=== PATIENT | male | born 1960 | race Caucasian/White ===

== ENCOUNTER 2017-10-14 08:19 | Emergency (ER) | payer OTHER ==
[~2017-10-14] VITALS: Ht 182.9 cm; Wt 92.0 kg
[2017-10-14 08:22] VITALS: BP 200/90; PULSE 46; RESP 16; TEMP 98.4; O2SAT 99
[2017-10-14] MEDS ORDERED: ONDANSETRON HCL 4 MG/2 ML VIAL IV PUSH ONE (09:15)
[2017-10-14] MEDS ORDERED: SODIUM CHLORID 0.9% 500 ML INJ 500 ML IV ONE (09:15)
[2017-10-14] MEDS ORDERED: MORPHINE SULFATE 4 MG/ML INJ IV PUSH ONE ×2 (09:15→10:30)
[2017-10-14 09:42] LABS: AUTOMATED NEUTROPHIL # 9.4 TH/MM3 (1.8-7.7); BASOPHIL # 0.1 TH/MM3 (0-0.2); BASOPHIL % 0.6 % (0.0-2.0); EOSINOPHIL # 0.1 TH/MM3 (0-0.4); EOSINOPHIL % 1.3 % (0.0-4.0); HEMATOCRIT 49.5 % (39.0-51.0); HEMO FLAGS DIFF FINAL; LYMPH % 9.7 % (9.0-44.0); LYMPHOCYTE # 1.1 TH/MM3 (1.0-4.8); MEAN CELL VOLUME 91.9 FL (80.0-100.0); MEAN CORPUSCULAR HEMOGLOBIN 30.7 PG (27.0-34.0); MEAN CORPUSCULAR HGB CONC 33.3 % (32.0-36.0); MONO % 6.6 % (0.0-8.0); NEUT % 81.8 % (16.0-70.0); PLATELET COUNT 300 TH/MM3 (150-450); RED BLOOD COUNT 5.38 MIL/MM3 (4.50-5.90); WHITE BLOOD COUNT 11.4 TH/MM3 (4.0-11.0)
[2017-10-14 09:51] LABS: ALT (GPT) 28 U/L (12-78)
[2017-10-14 09:52] VITALS: BP 177/81; PULSE 45; RESP 18; O2SAT 96; O2SAT 98
[2017-10-14 09:54] LABS: ALKALINE PHOSPHATASE 108 U/L (45-117); TOTAL BILIRUBIN ADULT 0.4 MG/DL (0.2-1.0)
[2017-10-14 10:00] VITALS: BP 163/71; PULSE 52; RESP 23; O2SAT 98
--- NOTE | 2017-10-14 10:02 | PD ---
HPI Chief Complaint: Abdominal Pain Time Seen by Provider: 08:50 Travel History International Travel<30 days: No Contact w/Intl Traveler<30days: No Traveled to known affect area: No History of Present Illness HPI 57-year-old male states last night he developed right lower quadrant abdominal pain and nonbloody emesis. He denies any other concurrent complaints. Quality pain is sharp. Severity is severe. He denies recurrent history of this. He denies any specific modifying factors. PFSH Past Medical History Medical History: Denies Significant Hx Diminished Hearing: No Past Surgical History Abdominal Surgery: Yes (GASTRIC BYPASS) Cholecystectomy: Yes Social History Alcohol Use: No Tobacco Use: Yes (1 PPD) Substance Use: No Allergies-Medications (Allergen,Severity, Reaction): Coded Allergies: No Known Allergies (Unverified , 10/14/17) Reported Meds & Prescriptions Reported Meds & Active Scripts Active Flomax (Tamsulosin HCl) 0.4 Mg Cap 0.4 Mg PO HS can stop once stone passed Percocet (Oxycodone-Acetaminophen) 5-325 mg Tab 1 Tab PO Q6H PRN Review of Systems Except as stated in HPI: all other systems reviewed are Neg Physical Exam Narrative GENERAL: Well-nourished, well-developed patient. Uncomfortable SKIN: Warm and dry. HEAD: Normocephalic and atraumatic. EYES: No injection or drainage. ENT: No nasal drainage noted. NECK: Supple, trachea midline. CARDIOVASCULAR: Regular rate and rhythm RESPIRATORY: Breath sounds equal bilaterally. No accessory muscle use. GASTROINTESTINAL: Abdomen soft, tender right lower quadrant, nondistended. EXTREMITIES: No edema. NEUROLOGICAL: Awake and alert. Motor and sensory grossly within normal limits. Normal speech. Data Data Last Documented VS Vital Signs Date Time Temp Pulse Resp B/P (MAP) Pulse Ox O2 Delivery O2 Flow Rate FiO2 10/14/17 11:00 53 24 167/79 (108) 95 Room Air 10/14/17 08:22 98.4 Orders Orders Electrocardiogram (10/14/17 ) Complete Blood Count With Diff (10/14/17 08:53) Comprehensive Metabolic Panel (10/14/17 08:53) Urinalysis - C+S If Indicated (10/14/17 08:53) Lipase (10/14/17 08:53) Ct Abd/Pel W Iv Contrast(Rout) (10/14/17 ) Iv Access Insert/Monitor (10/14/17 08:53) Oximetry (10/14/17 08:53) Morphine Inj (Morphine Inj) (10/14/17 09:15) Ondansetron Inj (Zofran Inj) (10/14/17 09:15) Sodium Chlorid 0.9% 500 Ml Inj (Ns 500 M (10/14/17 09:15) Morphine Inj (Morphine Inj) (10/14/17 10:30) Ed Discharge Order (10/14/17 12:47) Labs Laboratory Tests Test 10/14/17 09:15 10/14/17 12:00 White Blood Count 11.4 TH/MM3 Red Blood Count 5.38 MIL/MM3 Hemoglobin 16.5 GM/DL Hematocrit 49.5 % Mean Corpuscular Volume 91.9 FL Mean Corpuscular Hemoglobin 30.7 PG Mean Corpuscular Hemoglobin Concent 33.3 % Red Cell Distribution Width 15.0 % Platelet Count 300 TH/MM3 Mean Platelet Volume 7.5 FL Neutrophils (%) (Auto) 81.8 % Lymphocytes (%) (Auto) 9.7 % Monocytes (%) (Auto) 6.6 % Eosinophils (%) (Auto) 1.3 % Basophils (%) (Auto) 0.6 % Neutrophils # (Auto) 9.4 TH/MM3 Lymphocytes # (Auto) 1.1 TH/MM3 Monocytes # (Auto) 0.8 TH/MM3 Eosinophils # (Auto) 0.1 TH/MM3 Basophils # (Auto) 0.1 TH/MM3 CBC Comment DIFF FINAL Differential Comment Blood Urea Nitrogen 19 MG/DL Creatinine 0.99 MG/DL Random Glucose 121 MG/DL Total Protein 8.3 GM/DL Albumin 4.3 GM/DL Calcium Level 9.6 MG/DL Alkaline Phosphatase 108 U/L Aspartate Amino Transf (AST/SGOT) 22 U/L Alanine Aminotransferase (ALT/SGPT) 28 U/L Total Bilirubin 0.4 MG/DL Sodium Level 139 MEQ/L Potassium Level 5.4 MEQ/L Chloride Level 107 MEQ/L Carbon Dioxide Level 26.6 MEQ/L Anion Gap 5 MEQ/L Estimat Glomerular Filtration Rate 78 ML/MIN Lipase 147 U/L Urine Color YELLOW Urine Turbidity CLEAR Urine pH 5.5 Urine Specific Boon GREATER THAN 1.050 Urine Protein 30 mg/dL Urine Glucose (UA) NEG mg/dL Urine Ketones 10 mg/dL Urine Occult Blood NEG Urine Nitrite NEG Urine Bilirubin NEG Urine Urobilinogen 2.0 MG/DL Urine Leukocyte Esterase NEG Urine RBC 1 /hpf Urine WBC LESS THAN 1 /hpf Urine Mucus FEW /lpf Microscopic Urinalysis Comment CULT NOT INDICATED MDM Medical Decision Making Medical Screen Exam Complete: Yes Emergency Medical Condition: Yes Medical Record Reviewed: Yes (past history confirmed with nurse) Interpretation(s) EKG is sinus bradycardia at 55, right bundle branch block, no STEMI criteria CBC & BMP Diagram 10/14/17 09:15 Total Protein 8.3 H, Albumin 4.3, Calcium Level 9.6, Alkaline Phosphatase 108, Aspartate Amino Transf (AST/SGOT) 22, Alanine Aminotransferase (ALT/SGPT) 28, Total Bilirubin 0.4 Last 24 hours Impressions Abdomen/Pelvis CT 10/14/17 0000 Signed Impressions: Service Date/Time: Saturday, October 14, 2017 11:04 - CONCLUSION: 1. I believe patient's symptoms are due to a punctate, 1-2 mm calculus identified just distal to the right UVJ with resulting mild hydroureter and pelvocaliectasis of the right renal collecting system. 2. Postsurgical changes including a prior gastric bypass and cholecystectomy. Mild intra-and extrahepatic biliary ductal dilatation is likely related to the latter. Graham Quintanilla MD Differential Diagnosis Appendicitis, stone, pancreatitis, UTI Narrative Course Will check blood work, urinalysis, CT scan abdominal pelvis and dose with morphine and Zofran and reevaluate ed workup with right ureteral calculus, Patient denies any new complaints and states that they are feeling better. no emesis here, Patient happy with care, all questions answered. Patient knows that follow up is incumbent on them and to return to the emergency room immediately if new or worsening symptoms develop. Patient given strict return precautions, vitals reviewed and are normal , agrees to further workup as an outpatient. Diagnosis Primary Impression: Right ureteral calculus Referrals: Urologist call for appointment Patient Instructions: General Instructions, Narcotic given in the ED Additional Instructions: return as needed, follow with urology, don't drive while taking pain medication , keep hydrated, strain urine Med/Other Pt SpecificInfo: Prescription(s) given Scripts Tamsulosin (Flomax) 0.4 Mg Cap 0.4 MG PO HS for Manage Prostate Problems, #14 CAP 0 Refills can stop once stone passed Prov: Monalisa Cosme MD 10/14/17 Oxycodone-Acetaminophen (Percocet) 5-325 mg Tab 1 TAB PO Q6H Y for PAIN, #15 TAB 0 Refills Prov: Monalisa Cosme MD 10/14/17 Disposition: 01 DISCHARGE HOME Condition: Stable Monalisa Cosme MD Oct 14, 2017 10:02
[2017-10-14 10:17] LABS: ANION GAP 5 MEQ/L (5-15); AST (GOT) 22 U/L (15-37); BICARBONATE 26.6 MEQ/L (21.0-32.0); BLOOD UREA NITROGEN 19 MG/DL (7-18); CHLORIDE 107 MEQ/L (98-107); GLOMERULAR FILTRATION RATE 78 ML/MIN (>89); POTASSIUM 5.4 MEQ/L (3.5-5.1); SODIUM (NA) 139 MEQ/L (136-145)
[2017-10-14 11:00] VITALS: BP 167/79; PULSE 53; RESP 24; O2SAT 95
[2017-10-14] MEDS ORDERED: IOHEXOL 350 MG/ML 10 ML VIAL (for RAD DIAG) IVCONTRAST ONE (11:04)
--- NOTE | 2017-10-14 11:38 | RADRPT ---
EXAM DATE/TIME: 10/14/2017 11:04 [facility] COMPARISON: No previous studies available for comparison. INDICATIONS : Right lower quadrant pain. IV CONTRAST: 71 cc Omnipaque 350 (iohexol) IV ORAL CONTRAST: No oral contrast ingested. RADIATION DOSE: 7.77 CTDIvol (mGy) MEDICAL HISTORY : None SURGICAL HISTORY : Gastric bypass. Cholecystectomy. ENCOUNTER: Initial ACUITY: 1 day PAIN SCALE: 7/10 LOCATION: Right lower quadrant TECHNIQUE: Volumetric scanning of the abdomen and pelvis was performed. Using automated exposure control and ad justment of the mA and/or kV according to patient size, radiation dose was kept as low as reasonably achievable to obtain optimal diagnostic quality images. DICOM format image data is available electro nically for review and comparison. FINDINGS: LOWER LUNGS: Symmetric dependent atelectatic changes with a small parenchymal cyst in the right base. Otherwise cl ear. LIVER: Homogeneous density without lesion. Mild intra-and extra hepatic biliary ductal dilatation is probabl y secondary to a capacitance effect associated with prior cholecystectomy. SPLEEN: Normal size without lesion. PANCREAS: Within normal limits. KIDNEYS: Minimal pelvocaliectasis and mild hydroureter on the right. I believe this is deep to a 1-2 mm stone which appears to just posterior to the right UVJ. Left kidney and collecting system are radiographica lly normal. ADRENAL GLANDS: Within normal limits. VASCULAR: There is no aortic aneurysm. BOWEL/MESENTERY: Postsurgical changes in the left upper abdominal quadrant characteristic of the reported history of g astric bypass. Vermiform appendix is identified and is diminutive. ABDOMINAL WALL: Within normal limits. RETROPERITONEUM: There is no lymphadenopathy. BLADDER: No wall thickening or mass. REPRODUCTIVE: Mild dystrophic-type calcification. INGUINAL: There is no lymphadenopathy or hernia. MUSCULOSKELETAL: Within normal limits for patient age. CONCLUSION: 1. I believe patient's symptoms are due to a punctate, 1-2 mm calculus identified just distal to the right UVJ with resulting mild hydroureter and pelvocaliectasis of the right renal collecting system. 2. Postsurgical changes including a prior gastric bypass and cholecystectomy. Mild intra-and extrahep atic biliary ductal dilatation is likely related to the latter. Graham Quintanilla MD on October 14, 2017 at 11:27 Board Certified Radiologist. This report was verified electronically.
[2017-10-14] MEDS ORDERED: PERC5TAB12 PO (12:04)
[2017-10-14] MEDS ORDERED: TAMS5CAP PO (12:04)
[2017-10-14 12:41] LABS: BLOOD, URINE NEG (NEG); COMMENT (UR) CULT NOT INDICATED; CULTURE IF INDICATED CULT NOT INDICATED; GLUCOSE,URINE NEG (NEG); KETONE, URINE 10 mg/dL (NEG); MUCUS URINE FEW /lpf (OCC); NITRITE,URINE NEG (NEG); PH, URINE 5.5 (5.0-8.5); URINE COLOR YELLOW (YELLW/STRAW)
--- NOTE | 2017-10-15 10:30 | EKG ---
Date Performed: 10/14/2017 Time Performed: 09:46:53 PTAGE: 57 years EKG: SINUS BRADYCARDIA RIGHT BUNDLE BRANCH BLOCK ABNORMAL ECG NO PREVIOUS TRACING DOCTOR: Jerome Root Interpretating Date/Time 10/15/2017 10:29:09
== END 2017-10-14 13:45 | disposition home or self-care (01) ==
LOC: NEPC 08:19
DX: N13.2 Hydronephrosis with renal and ureteral calculous obstruction (principal); F17.200 Nicotine dependence, unspecified, uncomplicated; R00.1 Bradycardia, unspecified
CPT/HCPCS: 74177; 80053; 81001; 83690; 85025; 93005; 96361; 96374; 96375; 96376; 99285; J2270; J2405; J7040; Q9967

== ENCOUNTER 2018-09-07 17:53 | Inpatient (IN) ==
[2018-09-07] MEDS ORDERED: Tetanus/Diphtheria Toxoid Adult Vaccine Inj 0.5 ML Vial IM ONE (18:06)
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
[2018-09-07] MEDS ORDERED: Sod Chloride 0.9% Inj 1,000 ML IV.SIG SCH (20:45)
[2018-09-07 20:52] LABS: Baso # (Auto) 0.1 th/mm3 (0.0-0.2); Baso % (Auto) 0.5 % (0.0-2.0); Eos # (Auto) 0.1 th/mm3 (0.0-0.4); Eos % (Auto) 0.8 % (0.0-4.0); Hematocrit 41.1 % (39.0-51.0); Hemoglobin 13.9 gm/dL (13.0-17.0); Lymph # (Auto) 0.8 th/mm3 (1.0-4.8); Lymph % (Auto) 6.9 % (9.0-44.0); Mean Corpuscular HGB Conc 33.9 % (32.0-36.0); Mean Corpuscular Hemoglobin 30.9 pg (27.0-34.0); Mean Corpuscular Volume 91.3 fL (80.0-100.0); Mono # (Auto) 0.9 th/mm3 (0.0-0.9); Mono % (Auto) 7.4 % (0.0-8.0); Neut # (Auto) 10.1 th/mm3 (1.8-7.7); Neut % (Auto) 84.4 % (16.0-70.0); Platelet Count 236 th/mm3 (150-450); Red Cell Distribution Width 15.2 % (11.6-17.2); White Blood Count 11.9 th/mm3 (4.0-11.0)
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
[2018-09-07 21:18] LABS: Albumin 3.7 g/dL (3.4-5.0); Anion Gap 7 meq/L (5-15); Aspartate Aminotransferase 37 U/L (15-37); Blood Urea Nitrogen 24 mg/dL (7-18); Carbon Dioxide 24.7 meq/L (21.0-32.0); Chloride 111 meq/L (98-107); Glomerular Filtration Rate Greater Than 89 mL/min (>89); Glucose,Random 112 mg/dL (74-106); Potassium 4.2 meq/L (3.5-5.1); Sodium 143 meq/L (136-145)
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
[2018-09-07 21:19] LABS: Alanine Aminotransferase 36 U/L (12-78)
[2018-09-07 21:21] LABS: Alkaline Phosphatase 83 U/L (45-117); Total Protein 6.9 g/dL (6.4-8.2)
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
[2018-09-07] MEDS ORDERED: HYDROmorphone PF Inj 2 MG/ML Vial IV.PUSH PRN (21:41)
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
[2018-09-07] MEDS: Methocarbamol 500 MG Tablet PO SCH (23:44)
[2018-09-08] MEDS: HYDROmorphone PF Inj 2 MG/ML Vial IV.PUSH PRN (00:09)
[2018-09-08] MEDS ORDERED: Chlorhexidine Gluconate 2% 1 Pack (2 Cloths) TOPICAL PRN (04:00)
--- NOTE | 2018-09-08 04:50 | CT ---
EXAM DATE: 09/08/2018 4:44 AM EDT AGE/SEX: 58 years / Male INDICATIONS: Follow up hemorrhage. CLINICAL DATA: This is the patient's sequela encounter. Patient reports that signs and symptoms have been present for 1 day and indicates a pain score of 4/10. MEDICAL/SURGICAL HISTORY: Renal calculi. Gastric bypass. RADIATION DOSE: 68.84 CTDI (mGy) ;Tabletop exam [place] [facility] [place]07/2018. . TECHNIQUE: CT of the head without contrast. Using automated exposure control and adjustment of the mA and/or kV according to patient size, radiation dose was kept as low as reasonably achievable to ob tain optimal diagnostic quality images. DICOM format image data is available electronically for revi ew and comparison. FINDINGS: Cerebrum: The ventricles are normal for age. No evidence of midline shift, mass lesion, hemorrhage or acute infarction. No extraaxial fluid collections are seen. Posterior Fossa: The cerebellum and brainstem are intact. The 4th ventricle is midline. The cerebe llopontine angle is unremarkable. Extracranial: The visualized portion of the orbits is intact. Skull: The calvaria is intact. No evidence of skull fracture. CONCLUSION: Within normal limits. No perceptible hemorrhage. . Electronically signed by: Margarito Skelton MD 09/08/2018 4:48 AM EDT
--- NOTE | 2018-09-08 05:07 | CT ---
EXAM DATE: 09/08/2018 4:49 AM EDT AGE/SEX: 58 years / Male INDICATIONS: Evaluate for fracture. Abnormal wrist xray. CLINICAL DATA: This is the patient's initial encounter. Patient reports that signs and symptoms have been present for 1 day and indicates a pain score of 7/10. MEDICAL/SURGICAL HISTORY: Renal calculi. Gastric bypass. RADIATION DOSE: 12.07 CTDI (mGy) COMPARISON: [facility], WRIST COMPLETE LEFT MIN 3V, 09/07/2018. . TECHNIQUE: Multiple contiguous axial images were acquired using a multirow detector CT scanner witho ut contrast. Multiplanar reconstruction was performed in the sagittal and coronal planes. Using aut omated exposure control and adjustment of the mA and/or kV according to patient size, radiation dose was kept as low as reasonably achievable to obtain optimal diagnostic quality images. DICOM format i mage data is available electronically for review and comparison. FINDINGS: A hairline oblique fracture involves the mid zone of the scaphoid. No foreshortening or other signifi cant displacement demonstrated. Other bones of the right wrist are intact. No fracture seen of the mchugh nd. CONCLUSION: 1. Nondisplaced acute, oblique hairline fracture of the scaphoid. Electronically signed by: Margarito Skelton MD 09/08/2018 5:06 AM EDT
[2018-09-08] MEDS: Chlorhexidine Gluconate 2% 1 Pack (2 Cloths) TOPICAL SCH (05:48)
[2018-09-08] MEDS: Methocarbamol 500 MG Tablet PO SCH ×3 (05:48→21:16)
[2018-09-08 06:30] LABS: Baso % (Auto) 0.4 % (0.0-2.0); Eos # (Auto) 0.1 th/mm3 (0.0-0.4); Eos % (Auto) 0.7 % (0.0-4.0); Hematocrit 41.3 % (39.0-51.0); Hemoglobin 14.1 gm/dL (13.0-17.0); Lymph % (Auto) 12.1 % (9.0-44.0); Mean Corpuscular HGB Conc 34.2 % (32.0-36.0); Mean Corpuscular Hemoglobin 31.7 pg (27.0-34.0); Mean Corpuscular Volume 92.7 fL (80.0-100.0); Mono % (Auto) 12.2 % (0.0-8.0); Neut # (Auto) 6.3 th/mm3 (1.8-7.7); Neut % (Auto) 74.6 % (16.0-70.0); Platelet Count 226 th/mm3 (150-450); Red Blood Count 4.45 mil/mm3 (4.50-5.90); Red Cell Distribution Width 15.5 % (11.6-17.2); White Blood Count 8.4 th/mm3 (4.0-11.0)
[2018-09-08 06:56] LABS: Anion Gap 7 meq/L (5-15); Blood Urea Nitrogen 17 mg/dL (7-18); Calcium 8.4 mg/dL (8.5-10.1); Carbon Dioxide 23.8 meq/L (21.0-32.0); Chloride 110 meq/L (98-107); Glomerular Filtration Rate Greater Than 89 mL/min (>89); Glucose,Random 110 mg/dL (74-106); Sodium 141 meq/L (136-145)
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
[2018-09-08] MEDS ORDERED: Docusate Sodium 100 MG Capsule PO SCH (09:00)
[2018-09-08] MEDS: Famotidine 20 MG Tablet PO SCH ×2 (09:38→21:16)
[2018-09-08] MEDS: Lidocaine 5% Patch T-DERMAL SCH (09:39)
[2018-09-08] MEDS: Senna/Docusate Sodium 8.6/50 MG Tablet PO SCH ×2 (09:39→21:16)
--- NOTE | 2018-09-08 12:55 | P.PNCC ---
Subjective Brief [place] [facility] [place], multiple rib fractures on the right side 24 Hour Review/Hospital Course: 09/08 Patient is overall doing well GCS is 15, he is neurologically intact He complains of right sided thoracic pain at the site of fractured ribs His I-S is thousand His repeat CAT scan shows resolution of subarachnoid hemorrhage Had surgical consult is pending for a scaphoid fracture Patient is stable and will be transferred to the floor Objective Vital Signs / I&O: Vital Signs 09/07/18 18:04 09/07/18 18:45 09/07/18 21:24 Temperature 98.2 F Pulse Rate 66 Respiratory Rate 18 18 Blood Pressure 196/84 H Pulse Oximetry 96 96 09/07/18 22:07 09/07/18 22:08 09/08/18 00:00 Temperature 98.2 F Pulse Rate 65 Respiratory Rate Blood Pressure 168/84 H 192/93 H Pulse Oximetry 97 09/08/18 04:00 09/08/18 07:00 09/08/18 08:00 Temperature 98.2 F 98.5 F Pulse Rate 63 54 L 60 Respiratory Rate 16 14 14 Blood Pressure 172/81 H 165/77 H 160/76 H Pulse Oximetry 97 99 100 09/08/18 09:00 09/08/18 09:22 09/08/18 09:24 Temperature Pulse Rate 60 57 L Respiratory Rate 23 17 Blood Pressure 174/82 H Pulse Oximetry 98 95 09/08/18 10:00 09/08/18 11:00 09/08/18 12:00 Temperature 99.1 F Pulse Rate 60 62 67 Respiratory Rate 21 22 28 H Blood Pressure 179/90 H 150/78 H 147/80 H Pulse Oximetry 93 L 95 93 L Intake & Output 09/07/18 09/08/18 09/08/18 18:59 06:59 18:59 Intake Total 1700 / 1700 1100 / 1100 Output Total 600 / 600 Balance 1100 / 1100 1100 / 1100 Weight 95.254 kg 94.5 kg Intake: IV 1100 / 1100 1100 / 1100 LR 1000 mL Inj 1,000 ML @ 100 1000 / 1000 mls/hr IV.CONT .Q10H TINA Rx#: [id number] Ofirmev Inj 1,000 mg In 100 ml 100 / 100 100 / 100 @ 400 mls/hr IV.SIG Q6H TINA Rx# :[id number] NS Inj 1,000 ML @ Wide Open IV. 1000 / 1000 SIG BOLUS TINA Rx#:[id number] Oral 600 / 600 Output: Urine 600 / 600 Urine/Stool Mix 0 / 0 Other: Weight On Admission 94.5 kg Result Diagrams: 09/08/18 05:51 09/08/18 05:51 Imaging: Impressions Ribs X-Ray 09/07/18 18:06 CONCLUSION: Right-sided rib fractures. Wrist X-Ray 09/07/18 18:06 CONCLUSION: Possible scaphoid fracture. Head CT 09/07/18 18:13 CONCLUSION: 1. Trace subarachnoid hemorrhage suspected in the interpeduncular cistern. . Abdomen/Pelvis CT 09/07/18 20:19 CONCLUSION: 1. Negative for acute traumatic injury within the abdomen and pelvis. Postop cholecystectomy and gastric bypass surgery. No acute bony abnormality. Chest CT 09/07/18 20:20 CONCLUSION: 1. Multiple right posterior rib fractures with minimal right hemothorax and minimal lung contusion. Negative for mediastinal hematoma or traumatic aortic injury. Hand CT 09/08/18 00:00 CONCLUSION: 1. Nondisplaced acute, oblique hairline fracture of the scaphoid. Head CT 09/08/18 06:00 CONCLUSION: Within normal limits. No perceptible hemorrhage. . Disinhibition Score: 14.00 Aggression Score: 14.00 Lability Score: 14.00 Agitated Behavior Total Score: 14 - Exam DOWEL PIN MAN: Score coma score is 15 patient is neurologically intact Hemodynamic/Cardiac: he is hemodynamically normal Pulmonary/Respiratory: Breath sounds clear bilateral Abdomen/GI Nutrition: Abdomen is soft benign Renal/I&O: Is having adequate urine output Assessment and Plan Plan: Continue pulmonary toilet, continue pain control Transfer patient to floor Physical therapy Discharge planning
[2018-09-08] MEDS: Enoxaparin Inj 30 MG/0.3 ML Syringe SQ SCH ×2 (12:57→21:56)
--- NOTE | 2018-09-08 13:30 | P.PNNS ---
Subjective Interval history: completed f/u CT Brain this am, no neuro changes overnight Physical Exam Vital signs: Vital Signs 09/07/18 18:04 09/07/18 18:45 09/07/18 21:24 Temperature 98.2 F Pulse Rate 66 Respiratory Rate 18 18 Blood Pressure 196/84 H Pulse Oximetry 96 96 09/07/18 22:07 09/07/18 22:08 09/08/18 00:00 Temperature 98.2 F Pulse Rate 65 Respiratory Rate Blood Pressure 168/84 H 192/93 H Pulse Oximetry 97 09/08/18 04:00 09/08/18 07:00 09/08/18 08:00 Temperature 98.2 F 98.5 F Pulse Rate 63 54 L 60 Respiratory Rate 16 14 14 Blood Pressure 172/81 H 165/77 H 160/76 H Pulse Oximetry 97 99 100 09/08/18 09:00 09/08/18 09:22 09/08/18 09:24 Temperature Pulse Rate 60 57 L Respiratory Rate 23 17 Blood Pressure 174/82 H Pulse Oximetry 98 95 09/08/18 10:00 09/08/18 11:00 09/08/18 12:00 Temperature 99.1 F Pulse Rate 60 62 67 Respiratory Rate 21 22 28 H Blood Pressure 179/90 H 150/78 H 147/80 H Pulse Oximetry 93 L 95 93 L 09/08/18 12:58 Temperature Pulse Rate Respiratory Rate 16 Blood Pressure Pulse Oximetry Intake & Output 09/07/18 09/08/18 09/08/18 18:59 06:59 18:59 Intake Total 1700 / 1700 1200 / 1200 Output Total 600 / 600 Balance 1100 / 1100 1200 / 1200 Weight 95.254 kg 94.5 kg Intake: IV 1100 / 1100 1200 / 1200 LR 1000 mL Inj 1,000 ML @ 100 1000 / 1000 mls/hr IV.CONT .Q10H TINA Rx#: [id number] Ofirmev Inj 1,000 mg In 100 ml 100 / 100 200 / 200 @ 400 mls/hr IV.SIG Q6H TINA Rx# :[id number] NS Inj 1,000 ML @ Wide Open IV. 1000 / 1000 SIG BOLUS TINA Rx#:[id number] Oral 600 / 600 Output: Urine 600 / 600 Urine/Stool Mix 0 / 0 Other: Weight On Admission 94.5 kg Narrative: awake alert NAD moving all four extremities pupils equal Assessment and Plan - Plan Traumatic brain injury small subclinical hemorrhage Right scaphoid fracture Multiple rib fracture right chest Hand CT 09/08/18 00:00 CONCLUSION: 1. Nondisplaced acute, oblique hairline fracture of the scaphoid. Head CT 09/08/18 06:00 CONCLUSION: Within normal limits. No perceptible hemorrhage. Neuro: neuro checks in a serial fashion. Follow up CT Brain stable Pulmonary: Small pneumothorsx. Monitor with serial chest x-rays, aggressive pulmonary toilette, nasotracheal suction, and breathing treatments with nebulizers. Review fractures Multiple rib fractures: Narcotic analgesics for pain control Daily PT and OT Renal: Continue to monitor closely urine output, BUN and creatinine Endocrine: Continue to Monitor serial Acu checks and SSI as needed in detail ID continue to monitor for signs of infection Continue Protonix for stress ulcer prophylaxis Continue Fili hose and SCD's for DVT prophylaxis Further recommendations will be provided depending on the patient's clinical evaluation and follow up studies.
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
[2018-09-09] MEDS: HYDROmorphone PF Inj 2 MG/ML Vial IV.PUSH PRN ×2 (02:06→12:47)
[2018-09-09] MEDS: Chlorhexidine Gluconate 2% 1 Pack (2 Cloths) TOPICAL SCH (03:24)
--- NOTE | 2018-09-09 04:16 | XR ---
EXAM DATE: 09/09/2018 4:02 AM EDT AGE/SEX: 58 years / Male INDICATIONS: Chest pain and shortness of breath. CLINICAL DATA: This is the patient's subsequent encounter. Patient reports that signs and symptoms h ave been present for 3 days and indicates a pain score of 7/10. MEDICAL/SURGICAL HISTORY: . Gastric bypass. Cholecystectomy. COMPARISON: [facility], RIBS RIGHT MIN 3V W EXP CHEST, 09/07/2018. . FINDINGS: Focal parenchymal consolidation developing at the left base. No pleural effusion seen. No pneumothora x. Mild cardiomegaly is stable. CONCLUSION: New left base consolidation. Electronically signed by: Margarito Skelton MD 09/09/2018 4:15 AM EDT
[2018-09-09 04:18] LABS: Baso % (Auto) 0.4 % (0.0-2.0); Eos # (Auto) 0.1 th/mm3 (0.0-0.4); Eos % (Auto) 1.5 % (0.0-4.0); Hemoglobin 14.7 gm/dL (13.0-17.0); Lymph # (Auto) 0.9 th/mm3 (1.0-4.8); Lymph % (Auto) 9.8 % (9.0-44.0); Mean Corpuscular HGB Conc 35.1 % (32.0-36.0); Mean Corpuscular Hemoglobin 32.3 pg (27.0-34.0); Mean Platelet Volume 8.3 fL (7.0-11.0); Mono % (Auto) 10.3 % (0.0-8.0); Neut # (Auto) 7.4 th/mm3 (1.8-7.7); Platelet Count 227 th/mm3 (150-450); Red Blood Count 4.56 mil/mm3 (4.50-5.90); Red Cell Distribution Width 15.4 % (11.6-17.2); White Blood Count 9.5 th/mm3 (4.0-11.0)
[2018-09-09 04:43] LABS: Anion Gap 8 meq/L (5-15); Blood Urea Nitrogen 13 mg/dL (7-18); Calcium 8.8 mg/dL (8.5-10.1); Carbon Dioxide 27.2 meq/L (21.0-32.0); Chloride 106 meq/L (98-107); Glomerular Filtration Rate Greater Than 89 mL/min (>89); Glucose,Random 117 mg/dL (74-106); Potassium 3.8 meq/L (3.5-5.1); Sodium 141 meq/L (136-145)
[2018-09-09] MEDS: Methocarbamol 500 MG Tablet PO SCH ×3 (05:31→21:10)
[2018-09-09] MEDS: Enoxaparin Inj 30 MG/0.3 ML Syringe SQ SCH ×2 (09:19→21:09)
[2018-09-09] MEDS: Lidocaine 5% Patch T-DERMAL SCH (09:19)
[2018-09-09] MEDS: Senna/Docusate Sodium 8.6/50 MG Tablet PO SCH ×2 (09:19→21:10)
[2018-09-09] MEDS: Famotidine 20 MG Tablet PO SCH ×2 (09:20→21:09)
--- NOTE | 2018-09-09 12:15 | P.PNNPSY ---
- Behavior Intact: Impulsive/agitated - Cognitive Intact: Cognitive, Attention/concentration, Confused/orientation, Insight/ awareness, Judgment/problem solving, Memory - Psychosocial Intact: Psychosocial, Family/other adjustment, Realistic expectation - Progress Notes/Response to Treatment Contents of Sessions: Adjustment, Level of consciousness Time with Patient: 15 minutes Premorbid Psychological Status: Premorbid Cognitive, Emotional and Behavioral Status: Stable. The patient has high school years of education and a solid work history prior to this injury. The patient has no prior psychiatric difficulties, as described above. Substance abuse history is unremarkable. Behavioral Reactions of Patient and Family/Support System: Stable. The patient s family is experiencing ongoing issues of adjustment given the nature of the injury, and this aspect of recovery will require ongoing monitoring. Emotional/Behavioral Status of Patient and Family/Support System: Stable. Pertinent issues, if appropriate to this patients clinical care, are described in detail above. Maximizing Acute Care Outcome: It is recommended that the patient be monitored for emergent behavioral impulsivity as the medical condition evolves. This patients neuropathological challenges may limit rehabilitation potential going forward, and these challenges will require specialized therapeutic skills to maximize outcome. Additionally, the patients family is experiencing ongoing issues of adjustment given the traumatic nature of the injury, and they may benefit from ongoing psychological assistance. At this point in the recovery process, the patient does have cognitive capacity as the patient is able to understand a situation and its likely consequences, and he is able to manipulate information rationally. Cognitive capacity will be assessed throughout the recovery process. Anticipated Problems: Ongoing areas of concern will include behavioral impulsivity, lack of insight and judgment, which is expected to improve with time and treatment. Treatment Plan: This clinician will continue to follow with you throughout the course of this patients acute care treatment, and I will be available to meet with the patient s family/support system to facilitate their understanding and the ongoing care of their family member. The goals of neuropsychological intervention shall be both educational and supportive to the family/support system as is deemed clinically appropriate. [place] COG Scale: Level VIII Disinhibition Score: 14.00 Aggression Score: 14.00 Lability Score: 14.00 Agitated Behavior Total Score: 14 Impression: 58 year old male s/p complicated mild TBI 2T [facility] [place] 09/07/2018. Progress Note Narrative: PTD 2. The patient is at neurobehavioral baseline, is A&Ox4, no agitation/ restlessness. He is Rancho VIII. I will follow. - Diagnosis (1) Mild neurocognitive disorder due to traumatic brain injury Status: Acute
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
--- NOTE | 2018-09-09 15:19 | P.PNNS ---
Subjective Interval history: on breathing treatment when seen during rounds, no new neuro complaints overnight Physical Exam Vital signs: Vital Signs 09/08/18 15:52 09/08/18 16:00 09/08/18 20:00 Temperature 98.4 F 100.2 F H Pulse Rate 65 61 69 Respiratory Rate 17 25 H 20 Blood Pressure 163/85 H 165/76 H Pulse Oximetry 98 93 L 09/08/18 20:29 09/09/18 00:00 09/09/18 00:50 Temperature 98.4 F Pulse Rate 72 72 62 Respiratory Rate 16 21 17 Blood Pressure 167/84 H Pulse Oximetry 93 L 92 L 09/09/18 02:08 09/09/18 03:24 09/09/18 04:00 Temperature 97.9 F Pulse Rate 65 Respiratory Rate 24 23 24 Blood Pressure 163/73 H Pulse Oximetry 93 L 09/09/18 06:29 09/09/18 09:10 09/09/18 09:16 Temperature 98.9 F 98.7 F Pulse Rate 74 75 72 Respiratory Rate 17 14 18 Blood Pressure 139/82 161/88 H Pulse Oximetry 93 L 95 09/09/18 12:45 Temperature 98.4 F Pulse Rate 70 Respiratory Rate 18 Blood Pressure 164/87 H Pulse Oximetry 93 L Intake & Output 09/08/18 09/09/18 09/09/18 18:59 06:59 18:59 Intake Total 2640 / 2640 761 / 761 Output Total 1949 / 1949 700 / 700 Balance 690 / 690 61 / 61 Weight 99.5 kg Intake: IV 1200 / 1200 0 / 0 LR 1000 mL Inj 1,000 ML @ 100 1000 / 1000 mls/hr IV.CONT .Q10H TINA Rx#: [id number] Ofirmev Inj 1,000 mg In 100 ml 200 / 200 0 / 0 @ 400 mls/hr IV.SIG Q6H TINA Rx# :[id number] Oral 1440 / 1440 761 / 761 Output: Urine 1949 / 1949 700 / 700 Other: Date of Last Bowel Movement 09/07/18 Narrative: awake alert NAD moving all four extremities pupils equal Assessment and Plan - Plan Traumatic brain injury small subclinical hemorrhage Right scaphoid fracture Multiple rib fracture right chest Hand CT 09/08/18 00:00 CONCLUSION: 1. Nondisplaced acute, oblique hairline fracture of the scaphoid. Head CT 09/08/18 06:00 CONCLUSION: Within normal limits. No perceptible hemorrhage. Follow up CT Brain stable stable neurologically, nonsurgical mgt cont mgt per trauma team ok to dc from NRS standpoint once respiratory improves
[2018-09-10] MEDS: Methocarbamol 500 MG Tablet PO SCH (05:11)
[2018-09-10] MEDS: Chlorhexidine Gluconate 2% 1 Pack (2 Cloths) TOPICAL SCH (05:51)
--- NOTE | 2018-09-10 07:50 | XR ---
EXAM DATE: 09/10/2018 7:15 AM EDT AGE/SEX: 58 years / Male INDICATIONS: Chest and rib pain, short of breath CLINICAL DATA: This is the patient's subsequent encounter. Patient reports that signs and symptoms h ave been present for 3 days and indicates a pain score of 9/10. MEDICAL/SURGICAL HISTORY: Renal calculi. SDH, renal stones, broken arm Cholecystectomy. Gastr ic bypass. COMPARISON: [facility], CHEST 1V SINGLE AP, 09/09/2018. . FINDINGS: Moderate bibasilar parenchymal changes, increasing on the right. Heart remains enlarged. There is no significant failure. There is no pleural effusion or pneumothorax . CONCLUSION: Increasing bibasilar parental changes, worse on the right Electronically signed by: Vicente Childers MD 09/10/2018 7:49 AM EDT
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
[2018-09-10] MEDS: Lidocaine 5% Patch T-DERMAL SCH (08:53)
[2018-09-10] MEDS: Senna/Docusate Sodium 8.6/50 MG Tablet PO SCH (08:53)
[2018-09-10] MEDS: Famotidine 20 MG Tablet PO SCH (08:54)
[2018-09-10] MEDS: Enoxaparin Inj 30 MG/0.3 ML Syringe SQ SCH (08:54)
[2018-09-10] MEDS: HYDROmorphone PF Inj 2 MG/ML Vial IV.PUSH PRN (10:50)
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
== END 2018-09-10 13:33 | disposition home or self-care (01) ==
LOC: NEPD 17:53 → NEDA 20:26 → N03 09-08 00:49 → N06 09-09 06:10
PROVIDERS: ADMIT Surgery Trauma Surgery; ATTEND Surgery Trauma Surgery